=== PATIENT | female | born 1940 | race Caucasian/White ===

== ENCOUNTER → 2021-05-04 | Outpatient (CLI) | payer MEDICARE, OTHER ==
[~2021-05-04] MED LIST: CYMBALTA; OMEPRAZOLE; OMEPRAZOLE 20 M20 M1 PO; PHENERGAN 25 MG25 MG PO; ZOFRAN ODT4 MG PO
== END ==
LOC: M.RAD 08:43
PROVIDERS: ATTEND Surgery
DX: Z12.31 Encounter for screening mammogram for malignant neoplasm of breast (principal)